=== PATIENT | female | born 1985 | race Caucasian/White ===

== ENCOUNTER → 2017-06-02 | Outpatient (CLI) | payer OTHER ==
[~2017-06-02] MED LIST: CALC500C70 PO; PRENTAB26 PO
[2017-06-02 16:38] LABS: HEMOGLOBIN A1C 5.3 % (4.5-5.6)
== END | disposition home or self-care (01) ==
LOC: C.LAB 14:40
PROVIDERS: ATTEND Obstetrics & Gynecology
DX: R81 Glycosuria (principal); Z3A.00 Weeks of gestation of pregnancy not specified

== ENCOUNTER 2017-12-06 19:16 | Inpatient (IN) | payer OTHER ==
[~2017-12-06] VITALS: Ht 162.6 cm; Wt 58.0 kg
[2017-12-06] MEDS ORDERED: LACTATED RINGER'S 1000ML 1,000 ML IV SCH (20:16)
[2017-12-06] MEDS ORDERED: LACTATED RINGER'S 1000ML 1,000 ML IV PRN ×2 (20:16→20:41)
[2017-12-06] MEDS ORDERED: DINOPROSTONE 10 MG INSERT PV ONE ×2 (20:30→20:45)
[2017-12-06 20:44] LABS: HEMATOCRIT 39.4 % (37-47); HEMOGLOBIN 13.5 g/dL (12.0-16.0); MEAN CELL VOLUME 85.5 fL (80-100); WHITE BLOOD COUNT 9.63 K/uL (4.8-10.8)
[2017-12-06 20:45] LABS: MEAN CORPUSCULAR HEMOGLOBIN 29.3 pg (25-34); MEAN CORPUSCULAR HGB CONC 34.3 g/dl (32-36); MEAN PLATELET VOLUME 11.3 fL (7.4-10.4); PLATELET COUNT 191 K/uL (130-400); RED CELL DISTRIBUTION WIDTH CV 13.5 % (11.5-14.5); RED CELL DISTRIBUTION WIDTH SD 41.9 fL (36.4-46.3)
[2017-12-06 21:30] VITALS: Ht 162.6 cm; Wt 58.0 kg
[2017-12-06] MEDS ORDERED: BUPIVACAINE 0.25% 30 ML VIAL ONE (22:15)
[2017-12-06] MEDS ORDERED: EpHEDrine SULFATE INJ 50 MG/ML AMP ONE (22:16)
[2017-12-06] MEDS ORDERED: FENTANYL CITRATE INJ 50 MCG/1 ML 2 ML VIAL ONE (22:16)
[2017-12-06] MEDS ORDERED: FENTANYL 2MCG/ML ROPIV 1.25MG/ML 100ML BAG ONE (22:17)
[2017-12-06] MEDS ORDERED: LACTATED RINGER'S 1000ML 500 ML IV PRN (23:25)
[2017-12-06] MEDS ORDERED: NALOXONE HCL INJ 1 MG in SODIUM CHLORIDE 0.9% 1000ML 1,000 ML IV PRN (23:25)
[2017-12-06] MEDS ORDERED: DiphenhydrAMINE HCL 50 MG/ML VIAL IV PRN (23:30)
[2017-12-06] MEDS ORDERED: ONDANSETRON INJ 2 MG/ML 2 ML VIAL IV PRN (23:30)
[2017-12-06] MEDS ORDERED: EpHEDrine SULFATE INJ 50 MG/ML AMP IV PRN (23:30)
[2017-12-06] MEDS ORDERED: NALOXONE HCL INJ 0.4 MG/1 ML VIAL/CARP IV PRN (23:30)
[2017-12-06] MEDS ORDERED: FENTANYL 2MCG/ML ROPIV 1.25MG/ML 100ML BAG EPI PRN (23:30)
[2017-12-06] MEDS ORDERED: NALBUPHINE HCL INJ 10 MG/ML 1ML AMP IV PRN (23:30)
[2017-12-07] MEDS ORDERED: ACETAMINOPHEN 325 MG TAB PO PRN (03:30)
[2017-12-07] MEDS ORDERED: OXYCODONE/ACETAMINOPHEN 5-325 TAB PO PRN (03:30)
[2017-12-07] MEDS ORDERED: OXYTOCIN 30 UNITS/500ML NSS IV PRN (03:30)
[2017-12-07] MEDS ORDERED: HYDROCORTISONE ACETATE 25 MG SUPP PR PRN (03:30)
[2017-12-07] MEDS ORDERED: SUPERCREAM 0.870 % 15GM JAR EXT PRN (03:30)
[2017-12-07] MEDS ORDERED: BENZOCAINE 20% AER SPR 82.5 GM CAN EXT PRN (03:30)
[2017-12-07] MEDS ORDERED: LANOLIN OINT EXT PRN (03:30)
[2017-12-07] MEDS ORDERED: ACETAMINOPHEN/CODEINE 300/30MG TAB PO PRN ×2 (03:30)
[2017-12-07] MEDS: IBUPROFEN 600 MG TAB PO PRN ×5 (04:32→20:16)
--- NOTE | 2017-12-07 07:57 | Anesthesia Procedure Note ---
Anesthesia Epidural Removal Nt Date & Time Dec 07, 2017 at 07:56 Vital Signs Pain Intensity: 3.0 Notes Mental Status: alert / awake / arousable, participated in evaluation Nausea / Vomiting: adequately controlled Pain: adequately controlled Airway Patency, RR, SpO2: stable & adequate BP & HR: stable & adequate Hydration State: stable & adequate Neuraxial Anesthesia: was administered, sensory block is resolved Anesthetic Complications: no major complications apparent, pt satisfied with anesthetic care Epidural: removed without complications, with tip intact
[2017-12-07 08:00] VITALS: BP 103/80; PULSE 88; TEMP 36.4
[2017-12-07] MEDS: FERROUS SULFATE 325 MG TAB PO SCH (08:01)
[2017-12-07] MEDS: DOCUSATE SODIUM 100 MG CAP PO SCH ×2 (08:02→20:15)
[2017-12-07] MEDS: PRENATAL VITAMIN TAB PO SCH (08:02)
--- NOTE | 2017-12-07 09:06 | OPERATIVE REPORT ---
DATE OF OPERATION: 12/07/2017 DELIVERY NOTE Mrs. Hayes has a history of macrosomia. Her first infant weighed 8 pounds 2 ounces. It took her 5 hours to push it out. She is being brought in for induction to cut down on the baby's size. We had done this previously with her previous in 2014, and at 39 weeks, the baby weighed 7 pounds 4 ounces and she pushed about 20 minutes. Presently, due date is 12/14/2017. Blood type is O positive, rubella immune. We stripped her membranes in the office several times. By the time she was admitted, she was about 3+ cm, posterior, 50% effaced, vertex, given a Cervidil tape. She started to contract, started to have really hard contractions. At one point, the tape had to be removed due to contractions coming too frequently. She then received epidural anesthesia for pain control, good effect. Following this, membranes were ruptured surgically. Fluid was clear. She then went to full dilatation, pushed out a live male via direct occiput anterior position over an intact perineum. There was a tight nuchal cord around the neck, could not be reduced over the head. This was clamped and cut. Then, the shoulders were delivered without difficulty. Cord blood was taken. With IV Pitocin running, the placenta was removed intact. Bleeding was minimal. Infant was suctioned through the mouth and the nose prior to delivery of the body. Estimation 1 and 5 minute Apgars were 7 and 8 respectively and estimated blood loss was 100 mL. There was a first-degree perineal laceration which was repaired anatomically. The vaginal mucosa was approximated out and to beyond the hymenal ring with a heavy Vicryl and a deep suture of Vicryl was used to approximate the bulbocavernosus muscle, separate deep suture was used to approximate the perineal body and then a running subcuticular suture was used to approximate the perineal skin edges. Following this, vag exam including rectovaginal examination revealed no hematoma formation or sponges in the vagina. The patient tolerated the procedure well. I attest to the content of the Intraoperative Record and any orders documented therein. Any exception s are noted below.
[2017-12-07 11:45] VITALS: BP 118/72; PULSE 70; TEMP 36.9
--- NOTE | 2017-12-07 13:46 | Progress Note ---
Subjective Dec 07, 2017. Subjective conversation w/ patient Ambulation: ambulating normally Voiding: no voiding problems Passing Gas: Yes Diet Tolerance: Regular Diet Lochia: Small Feeding Type: Breast Feeding Review of Systems Constitutional: + fever Objective Vital Signs Date Time Temp Pulse Resp B/P (MAP) Pulse Ox O2 Delivery O2 Flow Rate FiO2 12/07/17 11:45 36.9 70 18 118/72 (87) Room Air 12/07/17 11:45 Room Air 12/07/17 08:00 36.4 88 18 103/80 (88) Physical Exam General Appearance: WELL-APPEARING Fundus: Firm, Non-Tender Extremities: no pedal edema, no calf tenderness Laboratory Results Last 24 Hours Test 12/06/17 20:33 White Blood Count 9.63 K/uL Red Blood Count 4.61 M/uL Hemoglobin 13.5 g/dL Hematocrit 39.4 % Mean Corpuscular Volume 85.5 fL Mean Corpuscular Hemoglobin 29.3 pg Mean Corpuscular Hemoglobin Concent 34.3 g/dl RDW Standard Deviation 41.9 fL RDW Coefficient of Variation 13.5 % Platelet Count 191 K/uL Mean Platelet Volume 11.3 fL Assessment and Plan Post- Day#: 0
[2017-12-07 15:55] VITALS: BP 114/69; PULSE 66; TEMP 36.9
[2017-12-07 18:45] VITALS: BP 117/76; PULSE 80; TEMP 36.9
[2017-12-07 23:10] VITALS: BP 103/64; PULSE 73; TEMP 36.4; O2SAT 97
[2017-12-08] MEDS: IBUPROFEN 600 MG TAB PO PRN ×3 (00:24→12:11)
[2017-12-08 03:45] VITALS: BP 110/73; PULSE 75; TEMP 36.5; O2SAT 97
[2017-12-08 06:37] LABS: HEMATOCRIT 36.7 % (37-47); HEMOGLOBIN 12.2 g/dL (12.0-16.0)
[2017-12-08 08:00] VITALS: BP 114/71; PULSE 78; TEMP 37.2; O2SAT 96
[2017-12-08] MEDS: PRENATAL VITAMIN TAB PO SCH (08:09)
[2017-12-08] MEDS: FERROUS SULFATE 325 MG TAB PO SCH (08:09)
[2017-12-08] MEDS: DOCUSATE SODIUM 100 MG CAP PO SCH (08:09)
--- NOTE | 2017-12-08 08:13 | Progress Note ---
Subjective Dec 08, 2017. Subjective conversation w/ patient Ambulation: ambulating normally Voiding: no voiding problems Passing Gas: Yes Diet Tolerance: Regular Diet Lochia: Small Feeding Type: Breast Feeding Review of Systems Constitutional: + fever Objective Vital Signs Date Time Temp Pulse Resp B/P (MAP) Pulse Ox O2 Delivery O2 Flow Rate FiO2 12/08/17 03:45 36.5 75 18 110/73 (85) 97 Room Air 12/07/17 23:10 97 Room Air 12/07/17 23:10 36.4 73 18 103/64 (77) 97 Room Air 12/07/17 18:45 36.9 80 18 117/76 (90) Room Air 12/07/17 15:55 36.9 66 18 114/69 (84) Room Air 12/07/17 11:45 36.9 70 18 118/72 (87) Room Air 12/07/17 11:45 Room Air Physical Exam General Appearance: WELL-APPEARING Abdomen: non tender Fundus: Firm, Non-Tender Laboratory Results Last 24 Hours Test 12/08/17 06:26 Hemoglobin 12.2 g/dL Hematocrit 36.7 % Assessment and Plan Post- Day#: 1 Continue Routine Care: patient requested discharge
--- NOTE | 2017-12-08 08:15 | Discharge Instructions ---
Discharge Instructions Date of Service Dec 08, 2017. Admission Reason for Admission: IUP Discharge Discharge Diagnosis / Problem: induction for history of macrosomia Discharge Goals Goal(s): Routine recovery after delivery Activity Recommendations Activity Limitations: as noted below ACTIVITY RECOMMENDATIONS: * Gradual return to full activity over the next 2-3 weeks. * No lifting - nothing heavier than baby over the next 2-3 weeks. * Do not engage in vigorous exercise, sexual activity or sports until cleared by your physician. * Do not drive or operate any motorized equipment until cleared by your physician. * You may shower/bathe daily. DIET: Resume Previous Diet If Breast-feeding: * Increase caloric intake by 500 calories, eat 3 well balanced meals, 2 high protein snacks a day and drink 6-8 8oz. glasses of fluid per day. BREAST CARE: If you are not breast feeding: * Wear a supportive bra 24 hours a day for one to two weeks. * Avoid stimulating your breasts and nipples as much as possible during the first few weeks after delivery. * When taking a shower, have the warm water hit your back, not breasts. * When your breasts feel full, apply ice packs. Usually three to four times a day helps ease the discomfort. * Take a mild pain medication (Tylenol / Motrin) when you are uncomfortable. If breast feeding: * Use breast milk to lubricate nipples. Lansinoh cream may be used for sore nipples. You do not need to remove cream prior to breast feeding. If using a different brand of cream, check the label for directions regarding removal of cream prior to nursing. * Wear a supportive bra. * If having problems with breasts or breast feeding, call a travel service consultant or your health care provider. OVER THE COUNTER MEDICATION: * For discomfort or pain, you may use Acetaminophen (Tylenol), Ibuprofen (Advil ), or Naproxen (Aleve) following the package directions. * For constipation you may use Colace following the package directions. SPECIAL CARE INSTRUCTIONS: * Vaginal rest (no tampons, douching, intercourse) until after doctor 's visit. * control as discussed with doctor. * Verbalizes understanding of car seat law as reviewed with patient nursing. * Car Seat hand-out given and reviewed with patient by nursing. * Shaken baby information reviewed with patient by nursing. Call you doctor if: * Temperature greater than or equal to 100.4 degrees F or 38.0 degrees C. Take your temperature twice daily for a week. * Bleeding becomes heavier than the heaviest part of your period - saturating a sanitary pad within an hour. * Passing large clots. * Bleeding has a foul smelling odor. * Signs and symptoms of phlebitis: leg pain, warm, red or swollen area on leg. * "Baby Blues" lasting longer than two weeks. ++ If you have had a and incision has increased pain, redness, swelling, presence of any drainage, or if the incision starts to open up. If you have any questions or concerns, call your health care practitioner at [phone]. FOLLOW-UP VISIT: Please call the office at to schedule a 6 week examination. . Current Hospital Diet ACTIVITY RECOMMENDATIONS: * Gradual return to full activity over the next 2-3 weeks. * No lifting - nothing heavier than baby over the next 2-3 weeks. * Do not engage in vigorous exercise, sexual activity or sports until cleared by your physician. * Do not drive or operate any motorized equipment until cleared by your physician. * You may shower/bathe daily. DIET: Resume Previous Diet If Breast-feeding: * Increase caloric intake by 500 calories, eat 3 well balanced meals, 2 high protein snacks a day and drink 6-8 8oz. glasses of fluid per day. BREAST CARE: If you are not breast feeding: * Wear a supportive bra 24 hours a day for one to two weeks. * Avoid stimulating your breasts and nipples as much as possible during the first few weeks after delivery. * When taking a shower, have the warm water hit your back, not breasts. * When your breasts feel full, apply ice packs. Usually three to four times a day helps ease the discomfort. * Take a mild pain medication (Tylenol / Motrin) when you are uncomfortable. If breast feeding: * Use breast milk to lubricate nipples. Lansinoh cream may be used for sore nipples. You do not need to remove cream prior to breast feeding. If using a different brand of cream, check the label for directions regarding removal of cream prior to nursing. * Wear a supportive bra. * If having problems with breasts or breast feeding, call a travel service consultant or your health care provider. OVER THE COUNTER MEDICATION: * For discomfort or pain, you may use Acetaminophen (Tylenol), Ibuprofen (Advil ), or Naproxen (Aleve) following the package directions. * For constipation you may use Colace following the package directions. SPECIAL CARE INSTRUCTIONS: * Vaginal rest (no tampons, douching, intercourse) until after doctor 's visit. * control as discussed with doctor. * Verbalizes understanding of car seat law as reviewed with patient nursing. * Car Seat hand-out given and reviewed with patient by nursing. * Shaken baby information reviewed with patient by nursing. Call you doctor if: * Temperature greater than or equal to 100.4 degrees F or 38.0 degrees C. Take your temperature twice daily for a week. * Bleeding becomes heavier than the heaviest part of your period - saturating a sanitary pad within an hour. * Passing large clots. * Bleeding has a foul smelling odor. * Signs and symptoms of phlebitis: leg pain, warm, red or swollen area on leg. * "Baby Blues" lasting longer than two weeks. ++ If you have had a and incision has increased pain, redness, swelling, presence of any drainage, or if the incision starts to open up. If you have any questions or concerns, call your health care practitioner at [phone]. FOLLOW-UP VISIT: Please call the office at to schedule a 6 week examination. Patient's current hospital diet: Regular Diet Discharge Diet Recommended Diet: Regular Diet Pending Studies Studies pending at discharge: no Medical Emergencies . Who to Call and When: Medical Emergencies: If at any time you feel your situation is an emergency, please call 911 immediately. . Non-Emergent Contact Non-Emergency issues call your: [employer] Specialist Call Non-Emergent contact if: temperature is above 100.5 . . "Provider Documentation" section prepared by Zach Santoyo. .
[2017-12-08] MEDS ORDERED: DIPHTHERIA/TETANUS/PERTUSSIS 0.5 ML SYR/VIAL IM. ONE (09:00)
[2017-12-08 12:32] VITALS: BP_DIAS 71; PULSE 78; TEMP 37.2
[2017-12-08] MEDS ORDERED: BISACODYL 5 MG TABEC PO SCH (20:00)
[2017-12-09] MEDS ORDERED: BISACODYL 10 MG SUPP PR PRN (07:00)
== END 2017-12-08 12:55 | disposition home or self-care (01) | DRG 775 ==
LOC: C.LD 19:16 → C.OBG 12-07 06:57
PROVIDERS: ADMIT Obstetrics & Gynecology; ATTEND Obstetrics & Gynecology
PROC: 10E0XZZ Delivery of Products of Conception, External Approach (ICD-10-PCS; principal; 2017-12-07)
PROC: 10907ZC Drainage of Amniotic Fluid, Therapeutic from Products of Conception, Via Natural or Artificial Opening (ICD-10-PCS; principal; 2017-12-07)
PROC: 0HQ9XZZ Repair Perineum Skin, External Approach (ICD-10-PCS; principal; 2017-12-07)
DX: O69.81X0 Labor and delivery complicated by cord around neck, without compression, not applicable or unspecified (principal); O70.0 First degree perineal laceration during delivery; Z3A.38 38 weeks gestation of pregnancy; Z37.0 Single live birth